=== PATIENT | female | born 1965 | race American Indian/Alaskan Native ===

== ENCOUNTER 2017-03-25 14:07 | Outpatient (CLI) | payer MEDICARE ==
--- NOTE | 2017-03-25 14:54 | XRay Report ---
RIGHT SHOULDER: History: Right shoulder pain. Routine views demonstrate normal bony and soft tissue structures with normal joint alignment of the shoulder. IMPRESSION: Normal study.
== END 2017-03-25 14:08 | disposition home or self-care (01) ==
LOC: XRAY 14:07
PROVIDERS: ATTEND Physical Medicine & Rehabilitation
DX: M25.511 Pain in right shoulder (principal)

== ENCOUNTER 2017-08-28 10:18 | Outpatient (CLI) | payer MEDICARE ==
--- NOTE | 2017-08-28 15:19 | Ultrasound Report ---
BILATERAL DIGITAL DIAGNOSTIC MAMMOGRAM WITH CAD and RIGHT BREAST ULTRASOUND: 08/28/17 10:18:00 CLINICAL: Breast cancer survivor status post right partial mastectomy. She complains of right breast pain and a right palpable lump. The health information technologist could not feel a lump and did not benji the breast from a mammogram. The glass technologist did not feel a lump at 1 o'clock 11 cm from the nipple where the patient feels a lump. COMPARISON:No prior mammograms available. Her previous mammograms were at [facility]. FINDINGS: The breasts are mostly fatty with bilateral residual heterogeneously dense retroareolar fibroglandular densities. Right postsurgical scar with surgical clips at 6 o'clock near the chest wall. No mass, suspicious architectural distortion or suspicious calcifications. Ultrasound of the right breast (including all four quadrants and the retroareolar area) was performed and demonstrated mass, cyst or shadowing at 1 o'clock 11 cm from the nipple where she feels a lump. A seroma at the surgical site measures 10 x 3 x 11 mm. No mass or cyst of the breast. IMPRESSION: Benign postsurgical changes in the right breast and negative left breast. No mammographic or ultrasound finding where the patient feels a lump at 1 o'clock 11 cm from the nipple. No explanation for right breast pain. BI-RADS CATEGORY: 2 -- Benign RECOMMENDATION: Clinical followup and routine mammographic screening in one year. COMMENT: Patient follow-up letters are generated via our [employer] application.
== END 2017-08-28 10:19 | disposition home or self-care (01) ==
LOC: MAMMO 10:18
PROVIDERS: ATTEND Internal Medicine
DX: N63.10 Unspecified lump in the right breast, unspecified quadrant (principal); N64.89 Other specified disorders of breast; N64.4 Mastodynia; Z85.3 Personal history of malignant neoplasm of breast; Z90.11 Acquired absence of right breast and nipple
CPT/HCPCS: 77066

== ENCOUNTER 2018-02-26 21:08 | Emergency (ER) | payer SELFPAY ==
--- NOTE | 2018-02-27 01:10 | Emergency Department Report ---
<DIDIER RODRÍGUEZ - Last Filed: 02/27/18 01:05> ED General Adult HPI - General Chief complaint: Fall Stated complaint: FALL Time Seen by Provider: 02/26/18 23:46 Source: patient, RN notes reviewed Mode of arrival: Ambulatory Limitations: No Limitations - History of Present Illness Initial comments: This is a 53-year-old female who is unknown to this provider previously with a past medical history of breast cancer comes to the ER with a complaint of occipital head pain, temporal pain and paracervical neck pain after mechanical trip and fall. She had no symptoms prior to the fall. After the fall, she complains of paracervical neck pain which is sharp and achy, radiates down the bottom of her back, and temporal and occipital head pain which is dull and achy , nonradiating, increases with palpation and decreases with rest. She believes that she had a loss of consciousness after the fall. She is not certain. -: Sudden Location: head, neck Radiation: back Quality: aching Consistency: intermittent Improves with: rest Worsens with: movement Associated Symptoms: headaches. denies: chest pain, cough, diaphoresis, fever/ chills, loss of appetite, malaise, nausea/vomiting, rash, seizure, shortness of breath, syncope, weakness - Related Data Home Medications Medication Instructions Recorded Confirmed Last Taken No Known Home Medications [No 02/26/18 02/26/18 Unknown Reported Home Medications] Allergies Allergy/AdvReac Type Severity Reaction Status Date / Time latex Allergy Swelling Verified 02/26/18 22:00 ED Review of Systems ROS: Stated complaint: FALL Other details as noted in HPI Constitutional: denies: weakness Eyes: denies: eye discharge ENT: denies: epistaxis Respiratory: denies: cough Cardiovascular: denies: chest pain Genitourinary: denies: dysuria Musculoskeletal: back pain Skin: denies: lesions Neurological: headache Psychiatric: anxiety ED Past Medical Hx - Past Medical History Previous Medical History?: No - Surgical History Past Surgical History?: Yes Hx Breast Surgery: Yes Additional Surgical History: tubal ligation, bowel obstruction x4 - Social History Smoking Status: Current Every Day Smoker Substance Use Type: Alcohol, Marijuana - Medications Home Medications: Home Medications Medication Instructions Recorded Confirmed Last Taken Type No Known Home Medications [No 02/26/18 02/26/18 Unknown History Reported Home Medications] ED Physical Exam - General Limitations: No Limitations General appearance: alert, anxious - Head Head exam: Present: atraumatic, normocephalic - Eye Eye exam: Present: normal appearance, PERRL, EOMI, other (visual acuity intact to finger counting, color perception, reading at a close distance). Absent: nystagmus - ENT ENT exam: Present: normal exam, normal orophraynx, mucous membranes moist, TM's normal bilaterally, normal external ear exam, other (is no mastoid tenderness. There is no nasal septal hematoma. There is no hemotympanum.) - Neck Neck exam: Present: normal inspection, tenderness (there is reproducible paracervical tenderness. There is no midline cervical spine tenderness), full ROM - Respiratory Respiratory exam: Present: normal lung sounds bilaterally. Absent: respiratory distress - Cardiovascular Cardiovascular Exam: Present: regular rate, normal rhythm, normal heart sounds. Absent: bradycardia, tachycardia, irregular rhythm, systolic murmur, diastolic murmur, rubs, gallop - GI/Abdominal GI/Abdominal exam: Present: soft, normal bowel sounds. Absent: distended, tenderness, guarding, rebound, rigid, pulsatile mass - Extremities Exam Extremities exam: Present: normal inspection, full ROM, normal capillary refill , other (2+ pulses noted in the bilateral upper, lower extremities. Compartments soft. No long bony tenderness. The pelvis is stable.). Absent: pedal edema, joint swelling, calf tenderness - Back Exam Back exam: Present: normal inspection, full ROM, paraspinal tenderness. Absent : tenderness, CVA tenderness (R), vertebral tenderness - Neurological Exam Neurological exam: Present: alert (vital to recall 3 out of 3 objects at time 0 and time 5 minutes.), oriented X3, CN II-XII intact, normal gait, other ( Extraocular movements intact. Tongue midline. No facial droop. Facial sensation intact to light touch in the V1, V2, V3 distribution bilaterally. 5 and 5 strength in 4 extremities.. Sensation is intact to light touch in 4 extremities.). Absent: motor sensory deficit - Psychiatric Psychiatric exam: Present: anxious - Skin Skin exam: Present: warm, dry, intact, normal color. Absent: rash ED Course Vital Signs 02/26/18 02/27/18 02/27/18 22:02 00:07 03:15 Temperature 98.5 F 98.6 F Pulse Rate 63 80 Respiratory 16 18 16 Rate Blood Pressure 140/75 Blood Pressure 133/58 [Left] O2 Sat by Pulse 99 98 Oximetry 02/27/18 02/27/18 04:06 04:18 Temperature 98.1 F Pulse Rate 50 L Respiratory 16 Rate Blood Pressure 121/74 Blood Pressure [Left] O2 Sat by Pulse 100 Oximetry - Reevaluation(s) Reevaluation #1: 02/27/18 01:08 Differential diagnoses, including but not limited to: Concussion, intracranial injury, paracervical injury Assessment and plan: 53-year-old female with mechanical trip and fall, probable concussion, with no midline cervical spine tenderness.Patient is clinically sober at this time. The cervical spine is cleared through nexus and cuban c spine rule GCS of 15, NIH score of 0. Declines pain medicine. Physical exam otherwise unremarkable. Most likely mildly concussed. We will obtain noncontrast CT scan of the brain. Care is transferred to the overnight physician, Dr.G Hamm, to follow up on CT scan results. If negative will discharge with expectant management. Counseled patient on symptoms of concussion and expectant management. Critical care attestation.: If time is entered above; I have spent that time in minutes in the direct care of this critically ill patient, excluding procedure time. ED Disposition Clinical Impression: Concussion Qualifiers: Encounter type: initial encounter Loss of consciousness presence/duration: with LOC of unspecified duration Qualified Code(s): S06.0X9A - Concussion with loss of consciousness of unspecified duration, initial encounter Disposition: - TO HOME OR SELFCARE Is pt being admited?: No Does the pt Need Aspirin: No Condition: Good Instructions: Concussion (ED), Minor Head Injury (ED) Additional Instructions: Rest, and avoid heavy lifting. Avoid strenuous physical activity. Do not engage in contact sports or contact activities until cleared by a primary care doctor. Symptoms of concussion including dizziness, lightheadedness, fogginess and forgetfulness. The symptoms can last for days to weeks. Therefore, he should follow up with a primary care doctor or neurology specialist if you have persistent headaches and dizziness. Please return to the ER right away with new pain, worsening pain, migration of pain, fevers, chills, lethargy, irritability, projectile vomiting, change in mental status, confusion, inability to tolerate liquid feeds. Referrals: PRIMARY CARE,MD [Primary Care Provider] - 3-5 Days TERE MCLAIN MD [Staff Physician] - 3-5 Days <YESSICA HAMM III - Last Filed: 02/27/18 05:13> ED Course - Reevaluation(s) Reevaluation #2: She signed out to me for pending CT scan of the head. CT of the head is negative. Patient is stable for discharge. Patient examined and I agree with discharge. We'll move forward with Dr. Rodríguez's plan of discharge pt home. Patient given discharge instructions and strict return to ER instructions. 02/27/18 05:12 ED Disposition Is pt being admited?: No Does the pt Need Aspirin: No Time of Disposition: 05:13
[2018-02-27] MEDS ORDERED: TYLENOL PO STA (01:40)
--- NOTE | 2018-02-27 04:09 | Cat Scan Report ---
FINAL REPORT EXAM: CT HEAD/BRAIN WO CON HISTORY: fall TECHNIQUE: CT imaging acquired through the head without intravenous contrast. Transaxial reformations are provided. PRIORS: None. FINDINGS: The ventricles, cisterns and sulci are within normal limits. No intraparenchymal or extra-axial mass, hemorrhage, or mass effect. Edmond and white-matter differentiation is within normal limits for patient age. Normal spherical shape of the globes. No significant abnormality involving the imaged portions of the paranasal sinuses and mastoid air cells. No skull or facial fracture visualized. IMPRESSION: No acute intracranial abnormality.
[2018-02-27 04:17] VITALS: BP 121/74
== END 2018-02-27 05:36 | disposition home or self-care (01) ==
LOC: ED 21:08
DX: S06.0X9A Concussion with loss of consciousness of unspecified duration, initial encounter (principal); M54.2 Cervicalgia; F17.200 Nicotine dependence, unspecified, uncomplicated; F12.10 Cannabis abuse, uncomplicated; Z91.040 Latex allergy status; W01.0XXA Fall on same level from slipping, tripping and stumbling without subsequent striking against object, initial encounter; Y93.89 Activity, other specified; Y92.89 Other specified places as the place of occurrence of the external cause; Y99.8 Other external cause status
CPT/HCPCS: 70450; 99283